=== PATIENT | female | born 1965 | race Caucasian/White ===

== ENCOUNTER → 2018-01-02 09:13 | Outpatient (CLI) | payer BC, SELFPAY ==
--- NOTE | 2018-01-02 09:20 | ECHOD_ITS ---
Reason For Study: SOB Procedure This was a 2D Doppler, Color Flow transthoracic echocardiogram. Exam performed in department. Left Ventricle Normal size and thickness. The estimated ejection fraction is 65 %. Normal diastology for age. No regional wall motion abnormalities noted. Right Ventricle Normal size and thickness. Normal systolic function. Atria Normal left atrium. Normal right atrium. Normal atrial septum. Mitral Valve The mitral valve is structurally normal. No prolapse or stenosis seen. Trivial mitral valve insufficiency. Tricuspid Valve Normal tricuspid valve. Trivial tricuspid valve insufficiency. Right ventricular systolic pressure estimated to be 30 mmHg. Aortic Valve Trisinus/trileaflet aortic valve. Mild diffuse aortic valve thickening. Trivial aortic valve insufficiency. Pulmonic Valve Normal pulmonic valve. Great Vessels Normal aortic root. Normal arch. Normal inferior vena cava. Inferior vena cava collapse with sniff. Pericardium/Pleural No pericardial effusion. MMode/2D Measurements & Calculations LVIDd: 4.7 cm IVSd: 0.91 cm Ao root diam: 2.9 cm LVIDs: 3.0 cm LVPWd: 0.94 cm RVDd: 3.4 cm FS: 35.8 % LAV(MOD-bp): 37.7 ml LA A4 area: 15.5 cm2 RA A4 area: 11.2 cm2 LAV(MOD-bp) Indexed: 18.2 ml/m2 LAV(MOD-sp2): 34.3 ml LAV(MOD-sp4): 37.0 ml Doppler Measurements & Calculations MV E max ke: 91.8 cm/sec Lat Peak E' Ke: 9.7 cm/sec Med Peak E' Ke: 7.7 cm/sec MV A max ke: 80.8 cm/sec E/E' lat: 9.4 E/E' med: 11.9 MV E/A: 1.1 Ao V2 max: 131.2 cm/sec LV V1 max: 103.0 cm/sec PA V2 max: 92.3 cm/sec Ao max P.9 mmHg LV V1 max P.2 mmHg Ao V2 mean: 95.2 cm/sec Ao mean P.0 mmHg Ao V2 VTI: 30.3 cm PI end-d ke: 76.3 cm/sec TR max ke: 253.1 cm/sec TR max P.8 mmHg Interpretation Summary The estimated ejection fraction is 65 %. Normal diastology for age. Trivial tricuspid valve insufficiency. Right ventricular systolic pressure estimated to be 30 mmHg. Trivial aortic valve insufficiency. There is no comparison study available. Ordering Physician: Gina Wilde Referring Physician: DOCTOR, [place] OF [place]OWN Performed By: Tasha Stevens RDCS, RVT
== END ==
DX: R06.02 Shortness of breath (principal)
CPT/HCPCS: 93306

== ENCOUNTER → 2018-01-08 12:36 | Outpatient (CLI) | payer BC, SELFPAY ==
--- NOTE | 2018-01-08 13:20 | RAD_ITS ---
STUDY: X-RAY CHEST REASON FOR EXAM: Female, 52 years old. Shortness of breath. TECHNIQUE: PA and lateral views of the chest. COMPARISON: None. FINDINGS: The lungs are clear and expanded. There is no demonstrated pleural abnormality. Normal size heart. Normal mediastinum and denita. Normal visualized pulmonary arteries. Normal visualized aortic arch and descending thoracic aorta. Normal visualized thoracic spine. Normal visualized ribs, clavicles, and shoulders. There is no demonstrated abnormality of the visualized soft tissue structures of the upper abdomen. RAD/Chest PA and Lateral IMPRESSION: No acute cardiopulmonary process. Electronically Signed: Sahra Connelly MD at 17:00 EDT Tel , Service support ,
[2018-01-08 13:24] LABS: Absolute Lymphocyte Count 1.23 X10^3/ul (0.83-4.51); Absolute Neutrophil Count 3.9 X10^3/uL (2.0-7.7); Basophil# 0.02 X10^3/uL; Basophil% 0.4 % (0-1); Eosinophil# 0.12 X10^3/uL; Eosinophils% 2.1 % (0-5); Hematocrit 39.8 % (37-47); Hemoglobin 13.2 g/dl (12.0-15.0); Lymphocyte # 1.23 X10^3/ul (4.0); Lymphocyte % 21.6 % (19-41); Mean Corp Hgb Conc 33.2 g/gl (32-36); Mean Corpuscular Hgb 29.3 pg (27.0-32.0); Mean Corpuscular Volume 88.4 fL (81-99); Mean Platelet Vol. 9.8 fl (6.2-12.0); Neutrophil # 3.92 X10^3/uL (2.7-7.7); Neutrophil % 68.7 % (47-70); Platelet Count 271 K/mm3 (150-450); RBC Distribution Width SD 41.7 fl (35.1-43.9); White Blood Count 5.7 K/mm3 (4.4-11.0)
[2018-01-08 13:25] LABS: POSITIVE COUNT NO; POSITIVE DIFFERENTIAL NO; POSITIVE MORPHOLOGY NO
[2018-01-08 13:26] LABS: Anion Gap 8 (5-15); BUN 11 mg/dL (7-18); BUN/Creat Ratio 17.5 RATIO (10-20); Calcium,Total 8.9 mg/dL (8.5-10.1); Chloride 106 mmol/L (98-107); Creatinine, Serum 0.63 mg/dL (0.55-1.02); EST Glomerular Filtration Rate 105 mL/min (>60); Est Glom Filt Rate - Afr Amer 127 mL/min (>60); Glucose 103 mg/dL (74-106); Sodium Level 139 mmol/L (136-145)
[2018-01-08 13:33] LABS: Partial Thromboplast Time 31.1 Seconds (24.1-36.2)
== END ==
PROVIDERS: Visit Provider Internal Medicine Cardiovascular Disease
DX: R07.9 Chest pain, unspecified (principal); E78.5 Hyperlipidemia, unspecified; R06.00 Dyspnea, unspecified
CPT/HCPCS: 36415; 71046; 80048; 85025; 85610; 85730

== ENCOUNTER → 2018-01-09 11:31 | Outpatient (CLI) | payer BC, SELFPAY ==
--- NOTE | 2018-01-09 11:32 | STE_ITS ---
Reason For Study: Chest Pain, SOB Stress Results Protocol: Stress Echocardiogram Maximum Predicted HR: 166 bpm Target HR: 141 bpm% Maximum Pr edicted HR: 100 % DurationHeart Rate Stage (mm:ss) (bpm) BPCom ment BASELINE 71 126/76 RICK PROTOCOL- STAGE 1 3:00 12 5 130/74SL SOB RICK PROTOCOL- STAGE 2 3:00 14 6 132/78 RICK PROTOCOL- STAGE 3 2:02 16 6 144/80SOB RECOVERY 98 94/70 Stress Duration: 8:02 mm:ss Maximum Stress HR: 166 bpm Baseline Echocardiogram Findings The estimated ejection fraction is 65 %. Stress Echo Wall motion Data Resting WMIntermediate WMStress WM Resting Wall Motion Wall Motion Stress No regional wall motion No regional wall motion abnormalities noted. abnormalities noted. EKG Data Normal intervals are noted. The patient exercised according to the regular Rick protocol for a total duration of 8:02. The maximum heart rate attained was 179 beats per minute. This was 107% of maximum predicted heart rate. The patient exercised into stage 3 of the Rick protocol. During stress, there were no ST or T wave changes noted to suggest ischemia. No clinical angina was noted. No arrhythmias noted. Interpretation Summary The estimated ejection fraction is 65 %. Normal, adequate, treadmill echocardiogram. Negative for ischemia by EKG and echocardiographic criteria. No anginal symptoms noted. No arrhythmias noted. Appropriate blood pressure response to exercise. Average exercise capacity for age. Test terminated due to dyspnea. Final LVEF is 75%. No complications. Ordering Physician: Gabriel Herrera Referring Physician: Gabriel Herrera [facility] Performed By: Tasha Stevens, PETER, RVT
== END ==
PROVIDERS: Visit Provider Internal Medicine Cardiovascular Disease
DX: R07.9 Chest pain, unspecified (principal); R06.00 Dyspnea, unspecified
CPT/HCPCS: 93017; 93350